=== PATIENT | female | born 1950 | race Caucasian/White ===

== ENCOUNTER → 2020-04-01 | Outpatient (CLI) | payer BC | LOC: VAS 15:33 → RAD 15:45 | DX: R60.0 Localized edema (principal); R06.00 Dyspnea, unspecified ==

== ENCOUNTER → 2021-01-25 | Outpatient (CLI) | payer MEDICARE, BC ==
[~2021-01-25] MED LIST: ADULT ASPIRIN R81 MG PO; COZAAR100 MG PO; LASIX40 M1 PO; PROZAC20 M1 PO; TOPROL XL100 MG PO; ZOCOR40 M1 PO
[2021-01-25 13:33] LABS: ALBUMIN 3.7 g/dL (3.4-4.8); POTASSIUM 4.3 mmol/L (3.5-5.1)
[2021-01-25 13:36] LABS: TOTAL PROTEIN 6.6 g/dL (6.2-8.1)
[2021-01-25 13:38] LABS: TOTAL BILIRUBIN 0.7 mg/dL (0.2-1.2)
[2021-01-25 13:41] LABS: BASO # 0.03 (0.02-0.10); EOS # 0.09 (0.04-0.40); EOS % 1.4 % (1.0-5.0); HEMATOCRIT 42.7 % (37.0-47.0); HEMOGLOBIN 13.6 g/dL (12.5-16.0); LYMPH# 1.56 (1.50-4.00); MEAN CELL VOLUME 98 fl (78-100); MEAN CORPUSCULAR HEMOGLOBIN 31 pg (27-31); MEAN CORPUSCULAR HGB CONC 32 g/dL (33-37); MEAN PLATELET VOLUME 10.5 fl (7.4-10.4); MONO # 0.49 (0.20-0.80); NEU # 4.23 (1.40-6.50); PLATELET COUNT 235 K/mm3 (130-400); RED BLOOD COUNT 4.36 M/mm3 (4.10-5.30); RED CELL DISTRIBUTION WIDTH 13.2 % (11.5-14.5); WHITE BLOOD COUNT 6.4 K/mm3 (4.8-10.8)
== END ==
LOC: LAB 12:14
PROVIDERS: Nurse Practitioner
DX: R10.11 Right upper quadrant pain (principal)

== ENCOUNTER → 2021-01-31 | Outpatient (CLI) | payer MEDICARE, BC | LOC: RAD 10:42 | DX: R10.11 Right upper quadrant pain (principal) ==

== ENCOUNTER 2021-02-11 03:42 | Emergency (ER) | payer MEDICARE, BC ==
[2021-02-11] MEDS ORDERED: ZOCOR40 M1 PO (03:56)
[2021-02-11] MEDS ORDERED: PROZAC20 M1 PO (03:57)
[2021-02-11] MEDS ORDERED: TOPROL XL100 MG PO (03:58)
[2021-02-11] MEDS ORDERED: ADULT ASPIRIN R81 MG PO (03:58)
[2021-02-11] MEDS ORDERED: LASIX40 M1 PO (03:58)
[2021-02-11] MEDS ORDERED: COZAAR100 MG PO (03:58)
[2021-02-11 05:20] LABS: BASO # 0.05 (0.02-0.10); EOS # 0.18 (0.04-0.40); HEMATOCRIT 39.4 % (37.0-47.0); HEMOGLOBIN 12.9 g/dL (12.5-16.0); LYMPH# 1.81 (1.50-4.00); MEAN CELL VOLUME 99 fl (78-100); MEAN CORPUSCULAR HEMOGLOBIN 32 pg (27-31); MEAN CORPUSCULAR HGB CONC 33 g/dL (33-37); MEAN PLATELET VOLUME 10.3 fl (7.4-10.4); MONO # 0.67 (0.20-0.80); NEU # 6.13 (1.40-6.50); PLATELET COUNT 243 K/mm3 (130-400); RED CELL DISTRIBUTION WIDTH 13.1 % (11.5-14.5); WHITE BLOOD COUNT 8.9 K/mm3 (4.8-10.8)
[2021-02-11 05:35] LABS: URINE APPEARANCE CLEAR; URINE BILIRUBIN 1+ (NEGATIVE); URINE BLOOD NEGATIVE (NEGATIVE); URINE COLOR YELLOW; URINE GLUCOSE NEGATIVE (NEGATIVE); URINE KETONE NEGATIVE (NEGATIVE); URINE LEUKOCYTE ESTERASE TRACE (NEGATIVE); URINE MUCUS PRESENT (NOT PRESENT); URINE NITRATE NEGATIVE (NEGATIVE); URINE PROTEIN(semi-quant) NEGATIVE (NEGATIVE); URINE UROBILINOGEN NORMAL (NORMAL)
[2021-02-11 05:35] LABS: ALBUMIN 3.7 g/dL (3.4-4.8)
[2021-02-11 05:36] LABS: POTASSIUM 4.4 mmol/L (3.5-5.1); SODIUM 139 mmol/L (136-145)
[2021-02-11 05:37] LABS: CALCIUM 8.7 mg/dL (8.3-10.5)
[2021-02-11 05:38] LABS: GLUCOSE 114 mg/dL (65-105); TOTAL PROTEIN 6.4 g/dL (6.2-8.1)
[2021-02-11 05:39] LABS: CARBON DIOXIDE 25 mmol/L (23-31)
[2021-02-11 05:40] LABS: TOTAL BILIRUBIN 0.4 mg/dL (0.2-1.2)
[2021-02-11 05:43] LABS: AST-SGOT 18 U/L (5-34)
[2021-02-11 05:44] LABS: ALT/SGPT 17 U/L (0-55)
[2021-02-11 05:45] LABS: LIPASE 44 U/L (8-78)
[2021-02-11 05:52] LABS: TROPONIN-I < 0.03 ng/mL (<0.030)
[2021-02-11 07:28] VITALS: BP 155/83
== END 2021-02-11 07:28 | disposition home or self-care (01) ==
LOC: ED 03:42
PROVIDERS: Nurse Practitioner
DX: N17.9 Acute kidney failure, unspecified (principal); R51.9 Headache, unspecified; I10 Essential (primary) hypertension; Z20.822 Contact with and (suspected) exposure to COVID-19; Z79.899 Other long term (current) drug therapy
CPT/HCPCS: J7030

== ENCOUNTER → 2023-06-14 | Outpatient (CLI) | payer MEDICARE, BC ==
[2023-06-14 17:21] LABS: D-DIMER 1.34 mg/L FEU (0.15-0.50)
== END ==
LOC: LAB 16:36
PROVIDERS: Nurse Practitioner Family
DX: M79.604 Pain in right leg (principal); W01.0XXA Fall on same level from slipping, tripping and stumbling without subsequent striking against object, initial encounter

== ENCOUNTER 2023-07-07 14:31 | Emergency (ER) | payer MEDICARE, BC ==
[~2023-07-07] VITALS: Ht 154.9 cm; Wt 106.4 kg
[2023-07-07 14:52] VITALS: BP 149/85
[2023-07-07 15:43] LABS: BASO # 0.05 K/mm3 (0.02-0.10); EOS # 0.15 K/mm3 (0.04-0.40); EOS % 1.4 % (1.0-5.0); HEMATOCRIT 43.3 % (37.0-47.0); HEMOGLOBIN 13.7 g/dL (12.5-16.0); LYMPH# 1.44 K/mm3 (1.50-4.00); MEAN CELL VOLUME 99 fl (78-100); MEAN CORPUSCULAR HEMOGLOBIN 31 pg (27-31); MEAN CORPUSCULAR HGB CONC 32 g/dL (33-37); MONO # 0.86 K/mm3 (0.20-0.80); NEU # 8.54 K/mm3 (1.40-6.50); PLATELET COUNT 240 K/mm3 (130-400); RED BLOOD COUNT 4.37 M/mm3 (4.10-5.30); RED CELL DISTRIBUTION WIDTH 12.9 % (11.5-14.5); WHITE BLOOD COUNT 11.1 K/mm3 (4.8-10.8)
[2023-07-07 15:52] LABS: CALCIUM 9.1 mg/dL (8.3-10.5)
[2023-07-07 15:55] LABS: TOTAL BILIRUBIN 0.7 mg/dL (0.2-1.2)
[2023-07-07 15:59] LABS: URINE APPEARANCE CLOUDY; URINE BILIRUBIN NEGATIVE (NEGATIVE); URINE COLOR YELLOW; URINE GLUCOSE NEGATIVE (NEGATIVE); URINE KETONE NEGATIVE (NEGATIVE); URINE PROTEIN(semi-quant) 1+ (NEGATIVE)
[2023-07-07 16:00] LABS: URINE BLOOD 250 ery/uL (NEGATIVE); URINE LEUKOCYTE ESTERASE 2+ (NEGATIVE); URINE NITRATE POSITIVE (NEGATIVE); URINE UROBILINOGEN NORMAL (NORMAL)
[2023-07-07 16:03] LABS: URINE WBC >50 /hpf (0-3)
[2023-07-07] MEDS ORDERED: CIPRO500 M1 PO (16:13)
== END 2023-07-07 16:56 | disposition home or self-care (01) ==
LOC: ED 14:31
PROVIDERS: Family Medicine
DX: N39.0 Urinary tract infection, site not specified (principal); I12.9 Hypertensive chronic kidney disease with stage 1 through stage 4 chronic kidney disease, or unspecified chronic kidney disease; N18.30 Chronic kidney disease, stage 3 unspecified